=== PATIENT | male | born 1985 | race Caucasian/White ===

== ENCOUNTER 2022-05-19 14:03 | Day surgery (SDC) | payer BC, SELFPAY ==
[2022-05-19] MEDS ORDERED: Sodium Chloride 0.9% 100 ML ONE (16:01)
[2022-05-19] MEDS ORDERED: cefOXitin 2 GM VIAL ONE (16:01)
[2022-05-19] MEDS ORDERED: Bupivacaine PF 0.5% 30 ML VIAL ONE (16:09)
[2022-05-19] MEDS ORDERED: Lidocaine 1% w/Epinephrine 1:100K 20 ML VIAL ONE (16:09)
[2022-05-19] MEDS ORDERED: Iopamidol 0 ML ONE (16:12)
[2022-05-19] MEDS ORDERED: fentaNYL Citrate/PF 100 MCG/2 ML SYRINGE ONE (16:21)
[2022-05-19] MEDS ORDERED: Dexamethasone 20 MG/5 ML VIAL ONE (16:27)
[2022-05-19] MEDS ORDERED: Ondansetron PF 4 MG/2 ML Vial ONE (16:27)
[2022-05-19] MEDS ORDERED: Lidocaine 1% PF 5 ML VIAL ONE (16:27)
[2022-05-19] MEDS ORDERED: Rocuronium Bromide 10 MG/ML (10ML VIAL) ONE (16:27)
[2022-05-19] MEDS ORDERED: PROPOFOL 200 MG/20 ML VIAL ONE (16:27)
[2022-05-19] MEDS ORDERED: Ketorolac Tromethamine 30 MG/ML VIAL ONE (16:27)
[2022-05-19] MEDS ORDERED: SUGAMMADEX SODIUM 200 MG/2 ML VIAL ONE (17:11)
[2022-05-19] MEDS ORDERED: Fentanyl 100 MCG/2 ML VIAL ONE (18:19)
== END 2022-05-19 19:20 | disposition home or self-care (01) ==
LOC: SDC 14:03
PROVIDERS: ATTEND Surgery
PROC: 0FT44ZZ Resection of Gallbladder, Percutaneous Endoscopic Approach (ICD-10-PCS; principal; 2022-05-19)
DX: K80.10 Calculus of gallbladder with chronic cholecystitis without obstruction (principal); E66.01 Morbid (severe) obesity due to excess calories; Z68.36 Body mass index [BMI] 36.0-36.9, adult; Z20.822 Contact with and (suspected) exposure to COVID-19
CPT/HCPCS: 88304; C1713; J0694; J1100; J1885; J2405; J2704; J3010; J3490; Q9967; S0020